=== PATIENT | male | born 1955 ===

== ENCOUNTER 2024-06-10 20:46 | Emergency (ER) | payer BC ==
[2024-06-10] MEDS: Sodium Chloride 0.9% 1,000 ML IV ONE (20:46)
[2024-06-10 21:00] LABS: BASOPHILS PERCENT AUTO 0.6 % (0.0-1.0); EOSINOPHILS PERCENT AUTO 3.4 % (1.0-3.0); HEMATOCRIT 40.8 % (40.0-54.0); HEMOGLOBIN 13.8 g/dL (14.0-18.0); LYMPHOCYTES PERCENT AUTO 31.6 % (20.5-50.1); MEAN CORPUSCULAR HEMOGLOBIN 30.3 pg (27.0-34.0); MEAN CORPUSCULAR HGB CONC 33.8 g/dL (33.0-35.0); MEAN CORPUSCULAR VOLUME 89.5 fL (80-100); MONOCYTES PERCENT AUTO 9.3 % (2-8); NEUTROPHILS PERCENT AUTO 55.1 % (42.2-75.2); PLATELET COUNT,PLT 176 10^3/uL (150-450); RED BLOOD CELL COUNT 4.56 10^6/uL (4.6-6.2); WHITE BLOOD CELL COUNT,WBC 10.4 10^3/uL (5.0-10.0)
[2024-06-10 21:31] LABS: A/G RATIO 1.2; ALANINE AMINOTRANSFERASE,ALT 29 U/L (16-63); ALBUMIN 3.5 g/dL (3.4-5.0); ALKALINE PHOSPHATASE 75 U/L (46-116); ANION GAP 11.4 mEq/L (7-13); ASPARTATE AMNIOTRANSFERASE,AST 16 U/L (15-37); BILIRUBIN TOTAL 0.4 mg/dL (0.2-1.0); BLOOD UREA NITROGEN,BUN 21 mg/dL (7-18); BUN/CREATININE RATIO 17.4 (No establ ref range); CALCIUM 8.5 mg/dL (8.5-10.1); CARBON DIOXIDE,CO2 27 mmol/L (21-32); CHLORIDE,CL 104 mmol/L (98-107); CREATININE 1.21 mg/dL (0.70-1.30); EST CRCL DRUG DOSING (CG) 65.91 mL/min; ETHANOL BLOOD MEDICAL 123 mg/dL (0); GLUCOSE RANDOM 82 mg/dL (70-99); MAGNESIUM 1.8 mg/dL (1.8-2.4); POTASSIUM,K 3.4 mmol/L (3.5-5.1); PROTEIN TOTAL,TP 6.5 g/dL (6.4-8.2); SODIUM,NA 139 mmol/L (136-145); TSH ULTRASENSITIVE 9.33 uIU/mL (0.36-3.74)
[2024-06-10 21:32] LABS: ESTIMATED GFR 66 mL/min (>=60); LIPASE > 250 U/L (16-77)
[2024-06-10] MEDS: Iopamidol 612 MG/ML 100 ML Bottle IVPUSH ONE (21:43)
[2024-06-10 23:22] LABS: LIPASE > 250 U/L (16-77)
[2024-06-10 23:32] LABS: APPEARANCE,URINE CLEAR (CLEAR); BILIRUBIN,URINE NEGATIVE (NEGATIVE); COLOR,URINE YELLOW (YELLOW); GLUCOSE,URINE NEGATIVE (NEGATIVE); KETONES,URINE NEGATIVE (NEGATIVE); LEUKOCYTE ESTERASE,URINE TRACE (NEGATIVE); NITRITE,URINE NEGATIVE (NEGATIVE); OCCULT BLOOD,URINE NEGATIVE (NEGATIVE); PROTEIN,URINE NEGATIVE (NEGATIVE); UROBILINOGEN,URINE 0.2 mg/dL (0.2-1.0)
[2024-06-10 23:43] LABS: BACTERIA,URINE FEW /HPF (0-FEW/HPF); EPITHELIAL CELLS,URINE FEW /HPF (NOT SEEN); RBC,URINE 0-5 /HPF (0-5)
== END 2024-06-11 00:13 | disposition home or self-care (01) ==
LOC: DL.ED 20:46
DX: R55 Syncope and collapse (principal); R00.1 Bradycardia, unspecified
CPT/HCPCS: 36415; 71045; 74177; 80053; 80307; 81001; 82150; 83605; 83690; 83735; 84439; 84443; 84484; 85025; 87086; 93005; 93010; 96360; 99284; 99285-25; J7030; Q9967